=== PATIENT | male | born 1940 | race Caucasian/White ===

== ENCOUNTER 2020-12-14 16:08 | Observation (INO) | payer MEDICARE, SELFPAY ==
--- NOTE | ~2020-12-14 | US_ITS ---
EXAMINATION: US renal BI EXAM DATE: 12/15/2020 10:56 INDICATION: Hydronephrosis. TECHNIQUE: Multiple grayscale and Doppler images of the kidneys were obtained (by a technologist who performed the scan) and subsequently reviewed. Correlation is made to CT abdomen pelvis from beto garrido FINDINGS: Right kidney: There is normal contour and echogenicity. It measures 9.9 x 5.1 x 5.1 centimeters. The re is a cyst measuring up to 2 cm There is no hydronephrosis. Left kidney: There is normal contour and echogenicity. It measures 9.8 x 5.4 x 5.5 centimeters. The re are no focal renal lesions identified. There is no hydronephrosis. Dominguez catheter balloon appears to be adequately positioned within collapsed bladder. Severe prostatom egaly, dimensions on this study 6.5 x 6.3 x 6.3 cm with volume of 136 cc. IMPRESSION: 1. Sonographically unremarkable kidneys. 2. Severe prostatomegaly. Dominguez in position. 3. No hydronephrosis. Reviewed, dictated and finalized at location B.
--- NOTE | ~2020-12-14 | CT_ITS ---
EXAMINATION: CT abdomen pelvis w con DATE: 12/14/2020 18:31 INDICATION: Low abdominal pain. Difficulty urinating. TECHNIQUE: Computed tomography (CT) of the abdomen and pelvis was performed with 100 mL Omnipaque 350 intravenous contrast. Automated exposure control and iterative reconstruction technique were employe d. The dose-length product was 678.66 mGy-cm. COMPARISON: None. FINDINGS: The visualized portions of the lung bases demonstrate mild atelectasis. No pleural effusion . There is biatrial enlargement of the heart. No pericardial effusion. The liver demonstrates surface nodularity, consistent with cirrhosis. Calcifications in the liver and spleen are consistent with ol d granulomatous disease. There are changes of cholecystectomy. The pancreas and adrenal glands are no rmal. There is cortical thinning of the kidneys. There are cysts in right kidney measuring up to 2.2 cm. The prostate is severely enlarged. There is mild bilateral hydronephrosis and hydroureter. There is trabeculation of the bladder wall. There is a small left inguinal hernia containing fat. There is diverticulosis of the colon without evidence of diverticulitis. There are no dilated loops of bowel. The appendix is normal. There is moderate right renal artery stenosis. There is calcified atheroscler osis of the aorta and many of the other arteries. There is moderate thoracolumbar spondylosis. IMPRESSION: 1. Trabeculation of the bladder wall, likely secondary to chronic outlet obstruction from the severel y enlarged prostate. 2. Mild bilateral hydronephrosis and hydroureter. 3. Cirrhosis of the liver. 4. Cardiomegaly. 5. Left inguinal hernia containing fat. 6. Moderate stenosis of right renal artery. Reviewed, dictated and finalized at location A. IMPRESSION: 1. Trabeculation of the bladder wall, likely secondary to chronic outlet obstru ction from the severely enlarged prostate. 2. Mild bilateral hydronephrosis and hydroureter. 3. Cirrhosis of the liver. 4. Cardiomegaly. 5. Left inguinal hernia containing fat. 6. Moderate stenosis of right renal artery.
[2020-12-14 16:34] VITALS: BP 158/87; PULSE 76; RESP 22; TEMP 36.9; O2SAT 96
--- NOTE | 2020-12-14 17:21 | ED.GENADULT ---
HPI - General Adult General Chief complaint: Abdominal Pain Stated complaint: unable to urinate Time Seen by Provider: 12/14/20 16:24 Source: patient and family History of Present Illness HPI narrative: Patient is a 80 y/o male complaining lower abdominal pain starting 2 days ago. 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 There is no known alleviating or exacerbating factor. According to his , he has not been urinating much during last 24 hours. Related Data Home Medications Medication Instructions Recorded Confirmed No Home Medications 12/14/20 12/14/20 Allergies Allergy/AdvReac Type Severity Reaction Status Date / Time tetanus and diphtheria Allergy Unknown Unknown Verified 12/14/20 16:41 toxoids Review of Systems Review of Systems: ROS unobtainable: Yes unobtainable due to medical condition Exam Const: General: no acute distress and well developed HENMT: Head: normocephalic Ears: external ears normal General nose exam: Normal external nose present Eyes: General: appearance normal, both eyes and all related structures Conjunctivae: conjunctivae normal Neck: Neck: normal visual inspection and full ROM Chest: Chest palpation & inspection: normal inspection of the chest and no tenderness Resp: Effort & Inspection: normal respiratory effort Auscultation: clear to auscultation bilaterally Cardio: Rate: regular rate Rhythm: regular rhythm GI: GI Palp: Yes abdominal tenderness and Yes Soft to palpation Skin: General skin exam: normal color and turgor normal Neuro: Cognition (Neuro): normal cognition Speech: aphasia Motor exam (neuro): Other motor observations present (right arm weak) Extrem: General: normal to inspection, full ROM and no pedal edema Psych: Appearance: grossly normal Mental Status: mental status grossly normal Affect: normal affect Course Consultations Consultation #1: Discussed with Dr. Juárez, who recommends admitting to hospitalist for electrolyte monitoring and urology will consult. Date: 12/14/20 Time: 19:49 Consultation #2: Discussed with FAIZA Rodriguez, who agrees to admit. Date: 12/14/20 Time: 20:05 Vital Signs Vital signs: Vital Signs Temperature 36.9 C 12/14/20 16:34 Pulse Rate 76 12/14/20 16:34 Respiratory Rate 22 H 12/14/20 16:34 Blood Pressure 158/87 H 12/14/20 16:34 Pulse Oximetry 96 12/14/20 16:34 Temperature 36.9 C 12/14/20 16:34 Pulse Rate 65 12/14/20 20:26 Respiratory Rate 18 12/14/20 20:26 Blood Pressure 123/106 H 12/14/20 20:26 Pulse Oximetry 95 12/14/20 20:26 Medical Decision Making Vital Signs Vital Signs: Vital Signs Temperature 36.9 C 12/14/20 16:34 Pulse Rate 76 12/14/20 16:34 Respiratory Rate 22 H 12/14/20 16:34 Blood Pressure 158/87 H 12/14/20 16:34 Pulse Oximetry 96 12/14/20 16:34 Temperature 36.9 C 12/14/20 16:34 Pulse Rate 65 12/14/20 20:26 Respiratory Rate 18 12/14/20 20:26 Blood Pressure 123/106 H 12/14/20 20:26 Pulse Oximetry 95 12/14/20 20:26 Lab Data Result diagrams: 12/14/20 17:45 12/14/20 17:44 Labs: Lab Results 12/14/20 12/14/20 12/14/20 Range/Units 17:42 17:44 17:45 WBC 10.1 H (4.5-10.0) K/mm3 RBC 4.81 (4.6-6.20) M/mm3 Hgb 14.1 (14.0-18.0) g/dL Hct 42.0 (42.0-52.0) % MCV 87.3 (80-100) fl MCH 29.3 (26-34) pg MCHC 33.6 (32-36) g/dl RDW 13.5 (11.5-14.5) % Plt Count 217 (150-375) k/mm3 MPV 8.8 (7.4-10.4) fl Immature Gran % (Auto) 0.7 H (0-0.5) % Neut % (Auto) 89.4 H (45.5-73.1) % Lymph % (Auto) 4.4 L (18.3-44.2) % Banks % (Auto) 5.2 (2.6-8.5) % Eos % (Auto) 0.1 (0-4.4) % Baso % (Auto) 0.2 (0.2-1.2) % Lymph # (Auto) 0.44 L (0.9-3.2) K/mm3 Banks # (Auto) 0.5 (0.1-0.6) K/mm3 Eos # (Auto) 0.0 (0-0.3) K/mm3 Baso # (Auto) 0.0 (0.0-0.1) K/mm3 Abs Immat Gran (auto) 0.07 H (0.00-0.03
--- NOTE | 2020-12-14 17:32 | PC.NURSE ---
920cc nancy urine removed via straight cath, pt verbalizing relief of abd pain. No difficulty inserting catheter, denies hx urinary retention
[2020-12-14 17:56] LABS: Basophils Percent Auto 0.2 % (0.2-1.2); Eosinophils Percent Auto 0.1 % (0-4.4); Hemoglobin 14.1 g/dL (14.0-18.0); Immature Granulocyte Absolute 0.07 K/mm3 (0.00-0.031); Immature Granulocyte Percent A 0.7 % (0-0.5); Lymphocytes Absolute Auto 0.44 K/mm3 (0.9-3.2); Lymphocytes Percent Auto 4.4 % (18.3-44.2); Mean Corpuscular HGB Conc 33.6 g/dl (32-36); Mean Corpuscular Hemoglobin 29.3 pg (26-34); Mean Corpuscular Volume 87.3 fl (80-100); Mean Platelet Volume 8.8 fl (7.4-10.4); Monocytes Absolute Auto 0.5 K/mm3 (0.1-0.6); Monocytes Percent Auto 5.2 % (2.6-8.5); Neutrophils Percent Auto 89.4 % (45.5-73.1); Platelet Count Result 217 k/mm3 (150-375); Red Blood Count 4.81 M/mm3 (4.6-6.20); Red Cell Distribution Width 13.5 % (11.5-14.5); White Blood Count 10.1 K/mm3 (4.5-10.0)
[2020-12-14 18:08] LABS: Add Urine Microscopic? YES; Appearance Urine Clear (Clear); Bacteria Urine Trace /hpf; Bilirubin Urine Negative (Negative); Blood Urine 3+ (Negative); Color Urine Yellow (Yellow); Glucose Urine UA Negative (Negative); Ketones Urine Negative (Negative); Leukocyte Esterase Ur Negative LEU/UL (Negative); Mucus Urine Rare /lpf; Nitrate Urine Negative (Negative); Protein Urine 2+ mg/dL (Negative); RBC Urine 21-50 /hpf (0-2); Specific Grav Ur 1.012 (1.001-1.035); Urobilinogen Urine Negative mg/dL (<2.0); WBC Urine 0-3 /hpf
[2020-12-14 18:09] LABS: Alanine Aminotransferase 13 U/L (4-50); Albumin Level 4.7 g/dL (3.5-5.1); Alkaline Phosphatase 56 U/L (38-126); Anion Gap 11 mmol/L (8-16); Aspartate Amino Transferase 34 U/L (17-59); Bilirubin,Total 1.3 mg/dL (0.2-1.3); Blood Urea Nitrogen 18 mg/dL (9-20); Calcium 9.7 mg/dL (8.4-10.2); Carbon Dioxide 25 mmol/L (22-30); Chloride 102 mmol/L (98-107); Estimated Glomerular Filt Rate > 60; Glucose 118 mg/dL (75-110); Sodium 138 mmol/L (137-145)
[2020-12-14 18:44] VITALS: BP 124/81; PULSE 76; RESP 22; O2SAT 99
[2020-12-14 20:26] VITALS: BP 123/106; PULSE 65; RESP 18; O2SAT 95
--- NOTE | 2020-12-14 21:00 | ADMGEN ---
This patient, Mk Gallardo, was admitted to Medical Room 343-01. Patient/family oriented to hospital policies and general routines including ID bracelet, bed and alarms, visiting hours, pain management, procedures, bathroom and other care routines, personal items, smoking policy, room service/diet, and visiting hours. Information on how to activate the Rapid Response Team has been discussed. Patient/Family are encouraged to report perceived risks to care and to ask questions if they do not understand what they are told or what they should do.
[2020-12-14 21:51] VITALS: BP 139/76; PULSE 69; RESP 18; TEMP 36.6; O2SAT 100; BMI 21.8
--- NOTE | 2020-12-14 21:51 | PC.NURSE ---
Spoke to patient's , Shreya Gallardo, about past medical history and updated her on pt status. She denies any significant medical history besides his past CVA, with residual right-sided weakness, and a cholecystectomy.
--- NOTE | 2020-12-14 22:08 | PM.IMHP ---
H&P: HPI History of Present Illness Date/Time: 12/14/20 22:08 Patient is a 80 y/o male complaining lower abdominal pain starting 2 days ago. 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 There is no known alleviating or exacerbating factor. According to his , he has not been urinating much during last 24 hours. he was noted to have acute urinary retention and had a waldron put in the ED. he was consulted with urology and suggested observation. He reports he is doing okay currently with no issues. he has hx of stroke with residual right sided weaknes and aphasia. He uses cane to get around at home and lives with his . Chief Complaint: urinary retention Review of Systems Constitutional: Constitutional: Denies chills, Denies fatigue, Denies lethargy and Denies weakness Eyes: Eyes: Denies blurry vision and Denies photophobia ENT: Denies epistaxis and Denies nasal congestion Cardiovascular: Cardiovascular: Denies chest pain and Denies lightheadedness Respiratory: Respiratory: Denies cough and Denies dyspnea Gastrointestinal: Gastrointestinal: Reports abdominal pain, Denies bloating, Denies constipation, Denies diarrhea, Denies nausea and Denies vomiting Genitourinary: Genitourinary: Reports as per HPI and Denies hematuria Musculoskeletal: Musculoskeletal: Denies back pain and Denies neck pain Integumentary/Breasts: Skin/Breast: Denies dry skin and Denies pruritus Neurologic: Denies abnormal gait and Denies confusion Psychiatric: Psychiatric: Denies anxiety and Denies confusion [facility] Past Medical History Medical History (Updated 12/14/20 @ 22:18 by Tavon Ulloa MD) Aphasia CVA (cerebral vascular accident) Family History Family History (Updated 12/14/20 @ 21:50 by Olivia Hernandez, RN) Other Unknown family medical history Social History Social History (Updated 12/14/20 @ 21:50 by Olivia Hernandez, RN) Smoking status: Never smoker Alcohol intake: never Substance use: never Living arrangements: with family Occupation/Education: retired Gender identity (if verbalized by the patient): Male Spiritual care concerns: No Meds Home Medications and Allergies Home Medications Medication Instructions Recorded Confirmed Type No Home Medications 12/14/20 12/14/20 History Allergies Allergy/AdvReac Type Severity Reaction Status Date / Time tetanus and diphtheria Allergy Unknown Unknown Verified 12/14/20 21:34 toxoids Vital Signs Vital Signs - 24 hr 12/14/20 16:34 12/14/20 18:44 12/14/20 20:26 Temperature 98.5 F Pulse Rate 76 76 65 Respiratory Rate 22 H 22 H 18 Blood Pressure 158/87 H 124/81 123/106 H Pulse Oximetry 96 99 95 12/14/20 21:51 Temperature 97.8 F Pulse Rate 69 Respiratory Rate 18 Blood Pressure 139/76 Pulse Oximetry 100 Exam Narrative: Exam Narrative: GENERAL: The patient is well developed, not in acute distress HEENT: Nonicteric sclerae, PERRLA, EOMI. Oropharynx clear. Moist mucous membranes. Conjunctivae appear well perfused. CHEST: Chest wall is nontender. HEART: Regular rate and rhythm without murmur, rubs, or gallops LUNGS: Clear to auscultation bilaterally. no respiratory distress ABDOMEN: Soft, positive bowel sounds, non-tender, no organomegaly. Waldron cathere inplace with dark urine in the urine bag SKIN: No rash, no excessive bruising, petechiae, or purpura. NEUROLOGIC: Aphasic due to previous storke, alert and orientex x 3, right sided weakness present EXTREMITIES: no edema, cyanosis or clubbing H&P: Results Labs Labs: Short CBC 12/14/20 Range/Units 17:45 WBC 10.1 H (4.5-10.0) K/mm3 Hgb 14.1 (14.0-18.0) g/dL Hct 42.0 (42.0-52.0) % Plt Count 217 (150-375) k/mm3 BMP 12/14/20 17:44 Sodium 138 Potassium 4.0 Chloride 102 Carbon Dioxide 25 BUN 18 Creatinine 1.00 Glucose 118 H Calcium 9.7 Liver Function 12/14/20 Range/Units 17:44 Total Migue
[2020-12-15 05:51] LABS: Basophils Percent Auto 0.3 % (0.2-1.2); Eosinophils Absolute Auto 0.1 K/mm3 (0-0.3); Hematocrit 37.9 % (42.0-52.0); Hemoglobin 12.7 g/dL (14.0-18.0); Immature Granulocyte Absolute 0.03 K/mm3 (0.00-0.031); Immature Granulocyte Percent A 0.4 % (0-0.5); Lymphocytes Absolute Auto 1.02 K/mm3 (0.9-3.2); Lymphocytes Percent Auto 15.2 % (18.3-44.2); Mean Corpuscular HGB Conc 33.5 g/dl (32-36); Mean Corpuscular Hemoglobin 29.2 pg (26-34); Mean Corpuscular Volume 87.1 fl (80-100); Mean Platelet Volume 8.6 fl (7.4-10.4); Monocytes Absolute Auto 0.7 K/mm3 (0.1-0.6); Neutrophils Absolute Auto 4.9 K/mm3 (1.3-6.7); Neutrophils Percent Auto 73.1 % (45.5-73.1); Platelet Count Result 181 k/mm3 (150-375); Red Blood Count 4.35 M/mm3 (4.6-6.20); Red Cell Distribution Width 13.4 % (11.5-14.5); White Blood Count 6.7 K/mm3 (4.5-10.0)
[2020-12-15 06:04] LABS: Anion Gap 5 mmol/L (8-16); Blood Urea Nitrogen 16 mg/dL (9-20); Calcium 9.2 mg/dL (8.4-10.2); Carbon Dioxide 30 mmol/L (22-30); Chloride 104 mmol/L (98-107); Estimated CRCL calculation 52 ml/min; Estimated Glomerular Filt Rate > 60; Glucose 98 mg/dL (75-110); Potassium 3.7 mmol/L (3.4-5.0); Sodium 139 mmol/L (137-145)
[2020-12-15 08:00] VITALS: BP 112/62; PULSE 64; RESP 16; TEMP 36.4; O2SAT 95
[2020-12-15] MEDS: TAMSULOSIN HCL 0.4 MG CAPSULE PO (08:57)
--- NOTE | 2020-12-15 09:46 | WPDURCON ---
Assessment and Plan Assessment and plan (1) BPH (benign prostatic hyperplasia): Code(s): N40.0 - Benign prostatic hyperplasia without lower urinary tract symptoms Status: Acute Assessment and Plan: Restart Finasteride and add Flomax as well. Patient to keep waldron in for 7-10 days and follow up in our office for a voiding trial to remove his waldron. No further recommendations at this time. (2) Urinary retention: Code(s): R33.9 - Retention of urine, unspecified Status: Acute (3) Hydronephrosis: Code(s): N13.30 - Unspecified hydronephrosis Status: Acute Assessment and Plan: Get a DAVID to ensure resolution of hydro bilaterally s/p catheter placement. Creatinine is 1.00. Urology Consult Note HPI Date Seen: 12/15/20 Requesting Physician: Tavon Ulloa MD Primary Care Provider: Alek Pelletier, Consult Narrative Narrative: Mk Gallardo is a 80 year old male who presented to the ER yesterday with abdominal pain x 2 days. He is aphasic secondary to a stroke. He had a waldron placed noting >1 L of urine on return. His UA is clear other than some hematuria, CT scan done yesterday reveals trabeculation in the bladder and mild bilateral hydronephrosis. His WBC is 6.7, creatinine is 1.00. NO family is at the bedside and the patient is unable to give medical history. All information was obtained from his chart. He is a previous patient of Dr. Bourne in our practice who was seen and treated for BPH and elevated PSA's since the . He has had four negative prostate biopsy's. He has not been seen in ten years, but was previously on Finasteride. Review of Systems Review of Systems: ROS unobtainable: Yes unobtainable due to medical condition PMFSH Past Medical History Medical History Aphasia CVA (cerebral vascular accident) Family History Family History Other Unknown family medical history Social History Social History Smoking status: Never smoker Alcohol intake: never Substance use: never Living arrangements: with family Occupation/Education: retired Gender identity (if verbalized by the patient): Male Spiritual care concerns: No Meds Home Medications and Allergies Home Medications Medication Instructions Recorded Confirmed Type No Home Medications 12/14/20 12/14/20 History Allergies Allergy/AdvReac Type Severity Reaction Status Date / Time tetanus and diphtheria Allergy Unknown Unknown Verified 12/14/20 21:34 toxoids Vital Signs Vital Signs - 24 hr 12/14/20 16:34 12/14/20 18:44 12/14/20 20:26 Temperature 98.5 F Pulse Rate 76 76 65 Respiratory Rate 22 H 22 H 18 Blood Pressure 158/87 H 124/81 123/106 H Pulse Oximetry 96 99 95 12/14/20 21:51 12/15/20 08:00 Temperature 97.8 F 97.6 F Pulse Rate 69 64 Respiratory Rate 18 16 Blood Pressure 139/76 112/62 Pulse Oximetry 100 95 Exam Const: General: comfortable and confusion; No anxious Limitations: other limitations (aphasic) Resp: Effort & Inspection: normal respiratory effort Cardio: Rate: regular rate GI: GI Palp: Yes Soft to palpation and No Tenderness to palpation present (GI) : General: Yes no CVA tenderness Urinary Catheter: Urinary Catheter: patent and draining and urine clear Extrem: General: no edema Results Labs CBC & Chem 7: 12/15/20 05:23 12/15/20 05:24 Labs: Short CBC 12/14/20 12/15/20 Range/Units 17:45 05:23 WBC 10.1 H 6.7 (4.5-10.0) K/mm3 Hgb 14.1 12.7 L (14.0-18.0) g/dL Hct 42.0 37.9 L (42.0-52.0) % Plt Count 217 181 (150-375) k/mm3 BMP 12/14/20 12/15/20 17:44 05:24 Sodium 138 139 Potassium 4.0 3.7 Chloride 102 104 Carbon Dioxide 25 30 BUN 18 16 Creatinine 1.00 1.00 Glucose 118 H 98 C
--- NOTE | 2020-12-15 10:35 | PC.NURSE ---
Patient to ultrasound via hospital stretcher.
--- NOTE | 2020-12-15 10:57 | PC.NURSE ---
Patient returned from ultrasound via hospital stretcher.
[2020-12-15] MEDS: FINASTERIDE 5 MG TABLET PO (12:18)
--- NOTE | 2020-12-15 12:25 | PM.DS ---
DS: Admitting Diagnosis Admitting Diagnosis Admitting Diagnosis: Urinary retention and abdominal pain DS: Discharge Diagnosis Discharge Diagnosis (1) Urinary retention: Code(s): R33.9 - Retention of urine, unspecified Status: Acute Assessment and Plan: Urinary retention with bilateral mild hydronephrosis with hydroureter. Pt can Dominguez catheter inserted ua with no signs of infection. CT scan showed prostatomegaly. Pt seen by urology started on Flomax and finasteride, pt to be dischraged with the catheter in situ for 7- 10 days time. (2) BPH (benign prostatic hyperplasia): Code(s): N40.0 - Benign prostatic hyperplasia without lower urinary tract symptoms Status: Acute Assessment and Plan: Catheter, flomax and finasteride follow up with urology. (3) Cirrhosis of liver: Code(s): K74.60 - Unspecified cirrhosis of liver Status: Acute Assessment and Plan: In his history but patient or not aware. (4) CVA (cerebral vascular accident): Code(s): I63.9 - Cerebral infarction, unspecified Status: Inactive Assessment and Plan: Dense old CVA effecting his right side arm and leg and speech. DS: Summary Hospital Course Hospital Course: Pt admitted with abdominal pains and urinary retention. Urinary retention with bilateral mild hydronephrosis with hydroureter. Pt can Dominguez catheter inserted in ED. UA with no signs of infection. CT scan showed prostatomegaly. Pt seen by urology started on Flomax and finasteride, pt to be discharged with the catheter in situ for 7- 10 days time. Kidney US showed no hydronephrosis. P is stable for discharge wit urology follow up. Time Spent with Patient Time attestation: Total time spent providing and/or coordinating discharge services:40 minutes on day of dischrage Exam Narrative: Exam Narrative: GENERAL: The patient is well developed, pleasant man HEENT: PERRLA HEART: Regular rate and rhythm without murmur, rubs, or gallops LUNGS: Clear to auscultation bilaterally. ABDOMEN: Soft, positive bowel sounds, non-tender, no organomegaly. Dominguez catheter in place SKIN: No rash, no excessive bruising, petechiae, or purpura. NEUROLOGIC: Aphasic due to previous stoke, alert and oriented x 3, right sided weakness of arm and leg DS: Data Data Completed and Pending Labs on day of discharge: Labs from last 24 hours 12/15/20 12/15/20 12/15/20 05:24 05:23 05:23 WBC 6.7 RBC 4.35 L Hgb 12.7 L Hct 37.9 L MCV 87.1 MCH 29.2 MCHC 33.5 RDW 13.4 Plt Count 181 MPV 8.6 Immature Gran % (Auto) 0.4 Neut % (Auto) 73.1 Lymph % (Auto) 15.2 L Allen % (Auto) 10.0 H Eos % (Auto) 1.0 Baso % (Auto) 0.3 Lymph # (Auto) 1.02 Allen # (Auto) 0.7 H Eos # (Auto) 0.1 Baso # (Auto) 0.0 Abs Immat Gran (auto) 0.03 Absolute Neuts (auto) 4.9 Absolute Nucleated RBC 0.0 Nucleated RBC % 0.0 Sodium 139 Potassium 3.7 Chloride 104 Carbon Dioxide 30 Anion Gap 5 L BUN 16 Creatinine 1.00 Estim Creat Clear Calc 52 Estimated GFR > 60 Glucose 98 Calcium 9.2 Total Bilirubin AST ALT Alkaline Phosphatase Total Protein Albumin Free PSA Pending % Free PSA Pending Total PSA Pending Urine Color Urine Appearance Urine pH Ur Specific [place] Urine Protein Urine Glucose (UA) Urine Ketones Ur Blood (Man) Urine Nitrate Urine Bilirubin Urine Urobilinogen Leukocyte Esterase Rfl Urine RBC Urine WBC Urine Bacteria Urine Mucus 12/14/20 12/14/20 12/14/20 17:45 17:44 17:42 WBC 10.1 H RBC 4.81 Hgb 14.1 Hct 42.0 MCV 87.3 MCH 29.3 MCHC 33.6 RDW 13.5 Plt Count 217 MPV 8.8 Immature Gran % (Auto) 0.7 H Neut % (Auto) 89.4 H Lymph % (Auto) 4.4 L Allen % (Auto) 5.2 Eos % (Auto) 0.1 Baso % (Auto) 0.2 Lymph # (Auto) 0.44 L Mon
[2020-12-18 07:56] LABS: PSA, Free 9.92 ng/mL; PSA, Total 54.2 ng/mL (<=4.0)
== END 2020-12-15 14:25 | disposition home or self-care (01) ==
LOC: ANHED 16:48 → ANH3MED 20:52
PROVIDERS: Admitting Provider Internal Medicine; Emergency Provider Emergency Medicine; PCP Internal Medicine; Visit Provider Family Medicine
DX: N40.1 Benign prostatic hyperplasia with lower urinary tract symptoms (principal); R33.8 Other retention of urine; K74.60 Unspecified cirrhosis of liver; I69.351 Hemiplegia and hemiparesis following cerebral infarction affecting right dominant side; I69.320 Aphasia following cerebral infarction; R10.30 Lower abdominal pain, unspecified; R97.20 Elevated prostate specific antigen [PSA]
CPT/HCPCS: 36415; 74177; 76775; 80048; 80053; 81001; 84153; 84154; 85025; 99285; A9270; G0378; Q9967

== ENCOUNTER 2020-12-17 20:18 | Emergency (ER) | payer MEDICARE, SELFPAY ==
[2020-12-17 20:25] VITALS: BP 163/83; PULSE 79; RESP 16; O2SAT 100
--- NOTE | 2020-12-17 20:29 | ED.MALEGU ---
HPI - Male Genitourinary General Chief complaint: Urogenital-Male Stated complaint: hematuria, has urinary cath in place. Time Seen by Provider: 12/17/20 20:29 Source: patient and RN notes reviewed Mode of arrival: ambulatory Limitations: no limitations History of Present Illness HPI Narrative: Patient is 80 years old white male status post Dominguez catheter placement secondary to urinary retention 4 days ago. tint layer somehow the catheter got pulled, the tried to reinserted, currently draining fresh red bright blood. Bladder scan on arrival showed 300 cc in the bladder. Patient is not on any blood thinner. Related Data Home Medications Medication Instructions Recorded Confirmed No Home Medications 12/14/20 12/14/20 Allergies Allergy/AdvReac Type Severity Reaction Status Date / Time tetanus and diphtheria Allergy Unknown Unknown Verified 12/14/20 21:34 toxoids Review of Systems Review of Systems: Narrative: CONSTITUTIONAL: Denies fever, chills, or sweats. EYES: Denies visual changes, redness, or discharge. ENT: Denies rhinorrhea, congestion, sore throat, or otalgia. CARDIOVASCULAR: Denies chest pain, palpitations, or edema. RESPIRATORY: Denies cough or dyspnea. GASTROINTESTINAL: Denies abdominal pain, nausea, vomiting, or diarrhea. GENITOURINARY: Denies dysuria or hematuria. SKIN: Denies rash or itching. MUSCULOSKELETAL: Denies back pain, joint pain, or myalgia. NEUROLOGIC: Denies headache, numbness, or weakness. PSYCHIATRIC: Denies anxiety or depression. [facility] Past Medical History Medical History Aphasia CVA (cerebral vascular accident) Family History Family History Other Unknown family medical history Social History Social History Smoking status: Never smoker Alcohol intake: never Substance use: never Gender identity (if verbalized by the patient): Male Spiritual care concerns: No Exam Narrative: Exam Narrative: Dominguez catheter in place, fresh red bright blood in the Dominguez catheter bag Course Course Emergency Course: Improving Vital Signs Vital signs: Vital Signs Pulse Rate 79 12/17/20 20:25 Respiratory Rate 16 12/17/20 20:25 Blood Pressure 163/83 H 12/17/20 20:25 Pulse Oximetry 100 12/17/20 20:25 Pulse Rate 79 12/17/20 20:25 Respiratory Rate 16 12/17/20 20:25 Blood Pressure 163/83 H 12/17/20 20:25 Pulse Oximetry 100 12/17/20 20:25 MDM - Male Genitourinary MDM Narrative Medical decision making narrative: Traumatic hematuria versus bladder bleeding for unknown etiology. Differential Diagnosis Differential diagnosis: Likely urinary tract infection and acute retention of urine Critical Care Time Critical Care Time Critical Care Time: Yes Total Critical Care Time: 10 Discharge Plan Discharge Clinical Impression: Traumatic hematuria, Acute urinary retention Patient Disposition: Home, Self-Care Condition: Improved Instructions: Urinary Retention in Men (ED), Dominguez Catheter Placement and Care (ED), Hematuria (ED) Additional Instructions: Call your urologist for appointment Prescriptions: No Action No Home Medications RF: 0 tamsulosin 0.4 mg Capsule 0.4 mg PO QAM 30 Days Qty: 30 RF: 6 finasteride [Proscar] 5 mg Tablet 5 mg PO QAM 30 Days Qty: 30 RF: 6 Follow-up/Referrals: Prabhu,Alek Sage MD [Primary Care Provider] -
[2020-12-18] VITALS: BP 110/60; PULSE 80; RESP 16; O2SAT 100
== END 2020-12-18 00:01 | disposition home or self-care (01) ==
PROVIDERS: Emergency Provider Emergency Medicine; PCP Internal Medicine
DX: R31.9 Hematuria, unspecified (principal); R33.9 Retention of urine, unspecified; I69.920 Aphasia following unspecified cerebrovascular disease; Y84.6 Urinary catheterization as the cause of abnormal reaction of the patient, or of later complication, without mention of misadventure at the time of the procedure
CPT/HCPCS: 99281

== ENCOUNTER 2020-12-20 19:37 | Emergency (ER) | payer MEDICARE, SELFPAY ==
[2020-12-20 20:03] VITALS: BP 162/88; PULSE 119; RESP 18; TEMP 36.3; O2SAT 98
--- NOTE | 2020-12-20 20:14 | ECG_ITS ---
Measurements Intervals [place] Rate: 70 P: TN: 0 QRS: 56 QRSD: 92 T: 31 QT: 424 QTc: 459 Interpretive Statements ATRIAL FIBRILLATION ABNORMAL ECG Electronically Signed On 12-21-2020 6:59:55 CDT by Alex Rojas D.O.
[2020-12-20 20:57] LABS: Basophils Percent Auto 0.3 % (0.2-1.2); Eosinophils Percent Auto 0.1 % (0-4.4); Hematocrit 43.1 % (42.0-52.0); Hemoglobin 13.9 g/dL (14.0-18.0); Immature Granulocyte Absolute 0.04 K/mm3 (0.00-0.031); Immature Granulocyte Percent A 0.5 % (0-0.5); Lymphocytes Absolute Auto 0.47 K/mm3 (0.9-3.2); Mean Corpuscular HGB Conc 32.3 g/dl (32-36); Mean Corpuscular Hemoglobin 29.4 pg (26-34); Mean Corpuscular Volume 91.3 fl (80-100); Mean Platelet Volume 8.8 fl (7.4-10.4); Monocytes Absolute Auto 0.5 K/mm3 (0.1-0.6); Monocytes Percent Auto 5.9 % (2.6-8.5); Neutrophils Absolute Auto 6.8 K/mm3 (1.3-6.7); Neutrophils Percent Auto 87.2 % (45.5-73.1); Platelet Count Result 189 k/mm3 (150-375); Red Blood Count 4.72 M/mm3 (4.6-6.20); Red Cell Distribution Width 13.2 % (11.5-14.5); White Blood Count 7.8 K/mm3 (4.5-10.0)
[2020-12-20 21:06] LABS: Add Urine Microscopic? YES; Appearance Urine Cloudy (Clear); Bilirubin Urine Negative (Negative); Blood Urine 3+ (Negative); Color Urine Red (Yellow); Glucose Urine UA Negative (Negative); Ketones Urine Negative (Negative); Leukocyte Esterase Ur Negative LEU/UL (Negative); Mucus Urine Heavy /lpf; Nitrate Urine Negative (Negative); Protein Urine 2+ mg/dL (Negative); RBC Urine >75 /hpf (0-2); Urobilinogen Urine Negative mg/dL (<2.0)
[2020-12-20 21:07] LABS: Alanine Aminotransferase 13 U/L (4-50); Albumin Level 4.4 g/dL (3.5-5.1); Alkaline Phosphatase 56 U/L (38-126); Anion Gap 10 mmol/L (8-16); Aspartate Amino Transferase 31 U/L (17-59); Bilirubin,Total 1.2 mg/dL (0.2-1.3); Blood Urea Nitrogen 16 mg/dL (9-20); Calcium 9.6 mg/dL (8.4-10.2); Carbon Dioxide 26 mmol/L (22-30); Chloride 102 mmol/L (98-107); Estimated CRCL calculation 50 ml/min; Estimated Glomerular Filt Rate > 60; Glucose 123 mg/dL (75-110); INR 1.1; Potassium 3.9 mmol/L (3.4-5.0); Prothrombin Time 14.3 Seconds (11.1-14.7); Sodium 138 mmol/L (137-145)
--- NOTE | 2020-12-20 22:10 | PC.NURSE ---
Dominguez irrigated with NS until just pink tinged --patient tolerated well. at bedside
--- NOTE | 2020-12-20 22:42 | PC.NURSE ---
Patient and prefer to leave gravity bag on at this time- states that she has a leg bag at home but wasn't sure how to apply ir. Instructions given and she voiced understanding and mimed demonstration on unhooking current bag and replacing with leg bag.
--- NOTE | 2020-12-20 22:44 | ED.ABDPAIN ---
HPI - Abdominal Pain General Chief Complaint: Urogenital-Male Stated Complaint: Urinary retention Time Seen by Provider: 12/20/20 20:33 Source: patient and family Mode of arrival: ambulatory Limitations: no limitations History of Present Illness HPI narrative: 80-year-old with a history of A. fib and benign prostatic hypertrophy here with complaints of lower abdominal pain and unable to urinate since this afternoon. Patient reports that this morning the his Dominguez catheter removed at the doctor's office. He denies any fever or chills. No history of nausea vomiting. MD elicited complaint: abdominal pain Pertinent past history: other (Benign prostatic hypertrophy and urinary retention) Pain Consistency: constant Location: suprapubic Severity: moderate Quality: fullness Radiation: none Migration to: no migration Relieving factors: nothing Related Data Home Medications Medication Instructions Recorded Confirmed No Home Medications 12/14/20 12/14/20 Allergies Allergy/AdvReac Type Severity Reaction Status Date / Time tetanus and diphtheria Allergy Unknown Unknown Verified 12/14/20 21:34 toxoids Review of Systems Review of Systems: All systems reviewed & are unremarkable except as noted in HPI and below Constitutional: Constitutional: Reports no additional constitutional complaints Eyes: Eyes: Reports no additional eye complaints ENT: Reports system reviewed and no additional complaints, except as documented Cardiovascular: Cardiovascular: Reports no additional cardiovascular complaints Respiratory: Respiratory: Reports no additional respiratory complaints Gastrointestinal: Gastrointestinal: Reports as per HPI Genitourinary: Genitourinary: Reports as per HPI Musculoskeletal: Musculoskeletal: Reports no additional musculoskeletal complaints PMFSH Past Medical History Medical History Aphasia CVA (cerebral vascular accident) Family History Family History Other Unknown family medical history Social History Social History Smoking status: Never smoker Alcohol intake: never Substance use: never Gender identity (if verbalized by the patient): Male Spiritual care concerns: No Exam Narrative: Exam Narrative: GENERAL: Well-appearing, well-nourished, and in no acute distress. HEAD: Normocephalic, atraumatic. EYES: PERRLA and EOMI.. NECK: Supple. CHEST: Clear to auscultation. No respiratory distress. HEART: Regular rate and rhythm. No murmur heard. Normal peripheral pulses. ABDOMEN: Soft, suprapubic fullness and tenderness. EXTREMITIES: Normal range of motion. No edema. SKIN: Warm, dry, no rash. NEURO: No focal deficits. Alert and oriented x3. PSYCH: Normal mood and affect. Course Course Emergency Course: Dominguez catheter was placed got about 150 mL bloody urine irrigated several times which turned pink. Discussed lab work with patient as well as family family. Discussed this case with Dr. El medina patient can be discharged home and followed up with her office. Vital Signs Vital signs: Vital Signs Temperature 36.3 C L 12/20/20 20:03 Pulse Rate 119 H 12/20/20 20:03 Respiratory Rate 18 12/20/20 20:03 Blood Pressure 162/88 H 12/20/20 20:03 Pulse Oximetry 98 12/20/20 20:03 Temperature 36.3 C L 12/20/20 20:03 Pulse Rate 119 H 12/20/20 20:03 Respiratory Rate 18 12/20/20 20:03 Blood Pressure 162/88 H 12/20/20 20:03 Pulse Oximetry 98 12/20/20 20:03 MDM - Abdominal Pain Lab Data Result diagrams: 12/20/20 20:39 12/20/20 20:39 Labs: Lab Results 12/20/20 12/20/20 12/20/20 Range/Units 20:39 20:39 20:39 WBC 7.8 (4.5-10.0) K/mm3 RBC 4.72 (4.6-6.20) M/mm3 Hgb 13.9 L (14.0-18.0) g/dL Hct 43.1 (42.0-52.0) % MCV 91.3 (80-100) fl MCH 29.
[2020-12-20 22:50] VITALS: BP 137/68; PULSE 78; RESP 16; O2SAT 97
== END 2020-12-20 23:00 | disposition home or self-care (01) ==
PROVIDERS: Emergency Medicine Emergency Medical Services; Emergency Provider Family Medicine; PCP Internal Medicine
DX: R31.9 Hematuria, unspecified (principal); N40.1 Benign prostatic hyperplasia with lower urinary tract symptoms; R33.8 Other retention of urine; I48.91 Unspecified atrial fibrillation; I69.920 Aphasia following unspecified cerebrovascular disease
CPT/HCPCS: 36415; 51702; 80053; 81001; 85025; 85610; 93005; 99283

== ENCOUNTER 2020-12-23 19:50 | Emergency (ER) | payer MEDICARE, SELFPAY ==
[2020-12-23 19:54] VITALS: BP 171/77; PULSE 89; RESP 18; TEMP 36.7; O2SAT 97
--- NOTE | 2020-12-23 20:12 | ED.MALEGU ---
HPI - Male Genitourinary General Chief complaint: Urogenital-Male Stated complaint: urinary retention Time Seen by Provider: 12/23/20 20:04 Source: patient and family Mode of arrival: ambulatory Limitations: dementia History of Present Illness HPI Narrative: This is a 80 year old male that presents to the ER for urinary retention today. History given by . Reports he was at his Urologists office today and had his Dominguez catheter removed. Reports this was at 11 this morning. He has not been able to urinate since. He had Dominguez placed and now feels much better. Denies fever. Related Data Home Medications Medication Instructions Recorded Confirmed No Home Medications 12/14/20 12/14/20 Allergies Allergy/AdvReac Type Severity Reaction Status Date / Time tetanus and diphtheria Allergy Unknown Unknown Verified 12/23/20 19:58 toxoids Review of Systems Review of Systems: Narrative: CONSTITUTIONAL: Denies fever GASTROINTESTINAL: Denies nausea, vomiting GENITOURINARY: Denies hematuria. All systems reviewed & are unremarkable except as noted in HPI and below PMFSH Past Medical History Medical History Aphasia CVA (cerebral vascular accident) Family History Family History Other Unknown family medical history Social History Social History Smoking status: Never smoker Alcohol intake: never Substance use: never Gender identity (if verbalized by the patient): Male Spiritual care concerns: No Exam Narrative: Exam Narrative: GENERAL: Elderly, well-nourished, and in no acute distress. HEAD: Normocephalic, atraumatic. EYES: EOMI. CHEST: Clear to auscultation. No respiratory distress. No wheezes rales or rhonchi HEART: Regular rate and rhythm. No murmur heard. Normal peripheral pulses. ABDOMEN: Soft, nontender, nondistended, normal active bowel sounds. EXTREMITIES: Normal range of motion. No edema. SKIN: Warm, dry, no rash. NEURO: No focal deficits. Alert and oriented x3. PSYCH: Normal mood and affect Course Consultations Consultation #1: Spoke with Dr. Dhaliwal about patient and work-up. Patient is to call in the morning for an appointment for follow-up Date: 12/23/20 Time: 21:09 Vital Signs Vital signs: Vital Signs Temperature 98.1 F 12/23/20 19:54 Pulse Rate 89 12/23/20 19:54 Respiratory Rate 18 12/23/20 19:54 Blood Pressure 171/77 H 12/23/20 19:54 Pulse Oximetry 97 12/23/20 19:54 Temperature 98.1 F 12/23/20 19:54 Pulse Rate 89 12/23/20 19:54 Respiratory Rate 18 12/23/20 19:54 Blood Pressure 171/77 H 12/23/20 19:54 Pulse Oximetry 97 12/23/20 19:54 MDM - Male Genitourinary MDM Narrative Medical decision making narrative: Patient presents to the emergency department for urinary retention. Dominguez catheter was removed today by Urologist and had not been able to urinate since. Patient has had several attempts to remove Dominguez without success recently. Urine today is orange, likely at least partially due to him currently taking Azo. UA is nitrate positive, but no white blood cells and only trace bacteria. I will send this for culture. Patient feels much better after Dominguez catheter placement. He is afebrile and nontoxic-appearing. Spoke with Dr. Dhaliwal about patient work-up. Patient is to call in the morning for an appointment for follow-up. He is stable and felt appropriate for further outpatient evaluation. He was given warnings to return to the ER Lab Data Attestation: I reviewed the patient's lab results. Labs: Lab Results 12/23/20 Range/Units 20:19 Urine Color Abigail (Yellow) Urine Appearance Clear (Clear) Urine pH 6.0 (5.0-9.0) Ur Specific [place] 1.006 (1.001-1.035) Urine Protein 1+ H (Negative) mg/dL Urine Glucose (UA) Negative (Negative) mg/dL Urine Ketones Negativ
[2020-12-23 20:36] LABS: Add Urine Microscopic? YES; Appearance Urine Clear (Clear); Bacteria Urine Trace /hpf; Bilirubin Urine Negative (Negative); Blood Urine 3+ (Negative); Color Urine Amber (Yellow); Glucose Urine UA Negative (Negative); Ketones Urine Negative (Negative); Leukocyte Esterase Ur Negative LEU/UL (Negative); Mucus Urine Rare /lpf; Nitrate Urine Positive (Negative); Protein Urine 1+ mg/dL (Negative); RBC Urine >75 /hpf (0-2); Specific Grav Ur 1.006 (1.001-1.035); Squamous Epithelial Cell Urine Rare /hpf (Few); WBC Urine 0-3 /hpf
== END 2020-12-23 21:38 | disposition home or self-care (01) ==
PROVIDERS: Physician Assistant; Emergency Provider Emergency Medicine; PCP Internal Medicine
DX: R33.9 Retention of urine, unspecified (principal); I69.920 Aphasia following unspecified cerebrovascular disease
CPT/HCPCS: 51702; 81001; 87086; 99283

== ENCOUNTER 2021-01-04 01:34 | Emergency (ER) | payer MEDICARE, SELFPAY ==
[2021-01-04 01:39] VITALS: PULSE 89; RESP 18; TEMP 36.4; O2SAT 96
--- NOTE | 2021-01-04 01:43 | PC.NURSE ---
Irrigated catheter due to no flow. Irrigated with 120 ML NS. Small clot came out, pt started to produce urine. 30 ml of urine came out of catheter. will continue to monitor .
--- NOTE | 2021-01-04 02:14 | ED.MALEGU ---
HPI - Male Genitourinary General Chief complaint: Urogenital-Male Stated complaint: cath problem Time Seen by Provider: 01/04/21 01:37 History of Present Illness HPI Narrative: 80 yo male w/ h/o BPH presents to the ED for a catheter problem. He reportedly had not had any urine out put from his catheter for hours. Then it began draining from around the catheter and there was blood in it. No other complaints. He has an appointment for urodynamics today. Related Data Home Medications Medication Instructions Recorded Confirmed No Home Medications 12/14/20 12/14/20 Allergies Allergy/AdvReac Type Severity Reaction Status Date / Time tetanus and diphtheria Allergy Unknown Unknown Verified 12/23/20 19:58 toxoids Review of Systems Constitutional: Constitutional: Denies chills and Denies fever(s) Cardiovascular: Cardiovascular: Denies chest pain Respiratory: Respiratory: Denies dyspnea Gastrointestinal: Gastrointestinal: Denies abdominal pain Genitourinary: Genitourinary: Reports hematuria PMFSH Past Medical History Medical History Aphasia CVA (cerebral vascular accident) Family History Family History Other Unknown family medical history Social History Social History Smoking status: Never smoker Alcohol intake: never Substance use: never Gender identity (if verbalized by the patient): Male Spiritual care concerns: No Exam Const: General: no acute distress and alert Nutritional Appearance: well nourished HENMT: Head: normal to inspection Neck: Neck: normal visual inspection Resp: Effort & Inspection: normal respiratory effort Auscultation: clear to auscultation bilaterally Cardio: Rate: regular rate Rhythm: regular rhythm GI: GI Palp: Yes Soft to palpation and No Tenderness to palpation present (GI) : General: Yes bladder normal to palpation Urinary Catheter: Urinary Catheter: other (pink tinged urine) Skin: General skin exam: normal color Neuro: General: moves all extremities Extrem: General: normal to inspection Course Vital Signs Vital signs: Vital Signs Temperature 36.4 C 01/04/21 01:39 Pulse Rate 89 01/04/21 01:39 Respiratory Rate 18 01/04/21 01:39 Pulse Oximetry 96 01/04/21 01:39 Temperature 36.4 C 01/04/21 03:05 Pulse Rate 88 01/04/21 03:05 Respiratory Rate 20 01/04/21 03:05 Blood Pressure 128/70 01/04/21 03:05 Pulse Oximetry 100 01/04/21 03:05 MDM - Male Genitourinary MDM Narrative Medical decision making narrative: urine flushed and clot cleared. Urine clearing up. Will send UA. They are eager for discharge. Urology can follow-up on results at todays appointment. Differential Diagnosis Differential diagnosis: Likely urinary tract infection Medical Records Attestation: I reviewed the patient's medical records. Discharge Plan Discharge Clinical Impression: Complication, blocked Dominguez catheter Qualifiers: Encounter type: initial encounter Qualified Code(s): T83.091A - Other mechanical complication of indwelling urethral catheter, initial encounter Patient Disposition: Home, Self-Care Condition: Stable Instructions: Dominguez Catheter Placement and Care (ED) Prescriptions: No Action No Home Medications RF: 0 tamsulosin 0.4 mg Capsule 0.4 mg PO QAM 30 Days Qty: 30 RF: 6 finasteride [Proscar] 5 mg Tablet 5 mg PO QAM 30 Days Qty: 30 RF: 6 Follow-up/Referrals: Lukasz Dhaliwal MD [Physician] - [place],Alek Sage MD [Primary Care Provider] -
[2021-01-04 03:05] VITALS: BP 128/70; PULSE 88; RESP 20; TEMP 36.4; O2SAT 100
[2021-01-04 04:16] LABS: Add Urine Microscopic? YES; Appearance Urine Cloudy (Clear); Bilirubin Urine Negative (Negative); Blood Urine 3+ (Negative); Color Urine Yellow (Yellow); Glucose Urine UA Negative (Negative); Ketones Urine Negative (Negative); Leukocyte Esterase Ur 3+ LEU/UL (Negative); Mucus Urine Rare /lpf; Nitrate Urine Negative (Negative); Protein Urine 2+ mg/dL (Negative); RBC Urine >75 /hpf (0-2); Specific Grav Ur 1.012 (1.001-1.035); Urobilinogen Urine Negative mg/dL (<2.0); WBC Urine >75 /hpf
== END 2021-01-04 03:06 | disposition home or self-care (01) ==
PROVIDERS: Emergency Provider Emergency Medicine; PCP Internal Medicine
DX: T83.091A Other mechanical complication of indwelling urethral catheter, initial encounter (principal)
CPT/HCPCS: 81001; 87077; 87086; 87088; 87186; 99283

== ENCOUNTER 2025-03-29 09:50 | Emergency (ER) | payer MEDICARE, SELFPAY ==
--- OUTSIDE RECORDS SUMMARY | 2025-03-29 09:52 | XMS_ITS | Clinical Summary ---
Author Organization [facility] Address [address] [place] [address] Care Team Providers Care Lab Tech Name Role Phone Unavailable Primary Care Provider Unavailabl e Social History Tobacco Use Types Packs/Day Years Used Date Smoking Tobacco: Never Assessed Sex and Gender Information Value Date Recorded Sex Assigned at Not on file Legal Sex Male 5:14 PM CDT Gender Identity Not on file Sexual Orientation Not on file Plan of Treatment Health Maintenance Due Date Last Done Comments DTaP, Tdap and Td Vaccines ( 1 - Tdap) 1957 Pneumococcal Vaccine: 50+ Ye ars (1 of 1 - PCV) 1988 Zoster Vaccines (1 of 2) 1988 RSV Immunization or 60+ Years (1 - 1-dose 75+ series) 2013 COVID-19 Vaccine (2023-2 5 season) 2024 Meningococcal B Vaccine Aged Out No l onger eligible based on patient's age to complete this topic Meningococcal Vaccine Aged Out No ricardo king eligible based on patient's age to complete this topic RSV Immunizations Under 20 Months Aged Out No longer eligible based on patient's age to complete this topic
--- OUTSIDE RECORDS SUMMARY | 2025-03-29 09:52 | XMS_ITS | Continuity of Care Document ---
Author Organization [facility] Address [address] [place] [address] Phone Care Team Providers Care Lawn Specialist Name Role Phone Alek Pelletier MD Unavailable Unavailable Allergies, Adverse Reactions, Alerts Substance Reaction Status Criticality Tetanus Vaccines and Toxoid Active No Information Medications Medication Instructions Dosage Effective Dates (start - stop) Status Comments atorvastatin 40 mg tablet take 1 tablet by oral route every day 40 MG - No Longer Active aspirin 325 mg tablet,delayed release take 1 tablet by oral route every day 325 MG - No Longer Active Advance Directives Directive Yes / No Effective Date File Name No Information Encounters Encounter Description Practice Location Reason(s) For Visit Diagnoses Date Provider Providers Copied on Encounter [facility], [address], [place], [place], [id number] , tel: [phone] [facility] No Information 1 Prabhu Gaston. [address] [place] [address], [id number] , . tel: [phone] [facility], [id number] [place] [address], [id number] , tel: [phone] [facility] No Information 0 Prabhu Gaston. [address] [place] [address], [id number] , . tel: [phone] [facility], [address], [place], [place], [id number] , tel: [phone] [facility] Senile cataract of right eye, unspecified age-related cataract typeHemiplegia of dominant side as late effect following cerebrovascular diseaseAphasia as late effect of cerebrovascular accidentHyperlipidemi a, unspecified hyperlipidemia type 7 Randamessi Choi. [address] [place] [address], [address], [place], [place], [address] [place] [address] , . tel: [phone] Referring Provider: Alek Pelletier, [address] [place] [address] [address], [place], [place], [address] [place] [address] . tel:[phone] [facility], [address], [place], [place], [id number] , tel: [phone] [facility] Hemiplegia of dominant side as late effect following cerebrovascular diseaseAphasia as late effect of cerebrovascular accidentHyperlipidemi a, unspecifiedScreening for prostate cancer 6 Prabhu Gaston. [address] [place] [address], [address], [place], [place], [id number] , . tel: [phone] Referring Provider: Alek Pelletier, [address] [place] [address] [address], [place], [address] [place] [address] . tel:[phone] [facility], [address], [place], [place], [id number] , tel: [phone] [facility] Anxiety state, unspecifiedOther and unspecified hyperlipidemiaAphasia as late effect of cerebrovascular accidentCerebrovascul ar accident 5 Inocente Bey. [address] [place] [address], [address], [place], [place], [id number] . tel: [phone] Referring Provider: Alek Pelletier, [address] [place] [address] [address], [place], [address] [place] [address] . tel:[phone] [facility], [address], [place], [place], [id number] , tel: [phone] [facility] HYPERTROPHY (BENIGN) OF PROSTATE WITHOUT URINARY OBSTRUCTIONImpotence of organic originElevated prostate specific antigen (psa)HYPERTROPHY (BENIGN) OF PROSTATE WITHOUT URINARY OBSTRUCTIONElevated prostate specific antigen (psa)HEMATURIA NOS Jun- 1 Prabhu Gaston. [address] [place] [address], [address], [place], [place], [id number] , . tel: [phone] Referring Provider: Alek Pelletier, [address] [facility] [address], [place], [address] . tel:[phone] Family History Family Member Type Diagnosis Age At Onset Father Problem (finding) malignant neoplasm of l [place] Sister Problem (finding) diabetes melli tus in first degree relative Payers Payer name Insurance type Covered alliance party ID Authorhama naida(s) MEDICARE [place] [id number] [employer] INSURNACE [id number] Social History Type Description Quantity Date Captured Comments Alcohol Use Details Unknown Caffeine Use Details Unknown Tobacco Use Status No Information Smoking Status No Information Sex Male Chief Complaint And Reason For Visit No Information Reason For Referral Reason For Referral No Information History Of Present Illness Encounter Date Complaint History Of Prese nt Illness No Information Functional Status Date Functional Assessmen t No Information Instructions Date Instruction Additional Infor mation No Information Assessments Type Assessment Date No Information Patient Care Teams Name Effective Dates (start - stop) Status Members No Information
[2025-03-29 10:03] VITALS: BP 158/88; PULSE 86; RESP 18; TEMP 36.6; O2SAT 97
[2025-03-29 10:33] LABS: Add Urine Microscopic? YES; Appearance Urine Clear (Clear); Glucose Urine UA Negative (Negative); Leukocyte Esterase Ur 2+ LEU/UL (Negative); Nitrate Urine Positive (Negative); Non Pathogenic Casts 0-2; Specific Grav Ur 1.008 (1.001-1.035)
--- OUTSIDE RECORDS SUMMARY | 2025-03-29 10:45 | XMS_ITS | Continuity of Care Document ---
Author Organization [facility] Address [address] [place] [address] Phone Care Team Providers Care Assistant Director Of Financial Aid Name Role Phone Alek Pelletier MD Unavailable [...] Diagnoses Date Provider Providers Copied on Encounter [facility], [address], [place], [place], [id number] , tel: [phone] [facility] No Information 1 Prabhu Gaston. [address] [place] [address], [id number] , . tel: [phone] [facility], [address] [place] [address], [id number] , tel: [phone] [facility] No Information 0 Prabhu Gaston. [address] [place] [address], [id number] , . tel: [phone] [facility], [address], [place], [place], [id number] , tel: [phone] [facility] Senile cataract of right eye, unspecified age-related cataract typeHemiplegia of dominant side as late effect following cerebrovascular diseaseAphasia as late effect of cerebrovascular accidentHyperlipidemi a, unspecified hyperlipidemia type 7 Randamessi Choi. [address] [place] [address], [address], [place], [address] [place] [address] , . tel: [phone] Referring Provider: Alek Pelletier, [address] [place] [address] [address], [place], [place], [address] [place] [address] . tel:[phone] [facility], [address], [place], [place], [id number] , tel: [phone] [facility] Hemiplegia of dominant side as late effect following cerebrovascular diseaseAphasia as late effect of cerebrovascular accidentHyperlipidemi a, unspecifiedScreening for prostate cancer 6 Prabhu Gaston. [address] [place] [address], [address], [place], [place], [id number] , . tel: [phone] Referring Provider: Alek Pelletier, [address] [place] [address] [address], [place], [address] [place] [address] . tel:[phone] [facility], [address], [place], [place], [address] , tel: [phone] [facility] Anxiety state, unspecifiedOther and unspecified hyperlipidemiaAphasia as late effect of cerebrovascular accidentCerebrovascul ar accident 5 Inocente Bey. [address] [place] [address], [address], [place], [place], [id number] . tel: [phone] Referring Provider: Alek Pelletier, [address] [place] [address] [address], [place], [address] [place] [address] . tel:[phone] [facility], [address], [place], [place], [address] , tel: [phone] [facility] HYPERTROPHY (BENIGN) OF PROSTATE WITHOUT URINARY OBSTRUCTIONImpotence of organic originElevated prostate specific antigen (psa)HYPERTROPHY (BENIGN) OF PROSTATE WITHOUT URINARY OBSTRUCTIONElevated prostate specific antigen (psa)HEMATURIA NOS Jun- 1 Prabhu Gaston. [address] [place] [address], [address], [place], [place], [id number] , . tel: [phone] Referring Provider: Alek Pelletier, [address] [facility] [address], [place], [address] . tel:[phone] Family History Family Member Type Diagnosis Age At Onset Father Problem (finding) malignant neoplasm of l [place] Sister Problem (finding) diabetes melli tus in first degree relative Payers Payer name Insurance type Covered republican ID Authorhama naida(s) MEDICARE [place] [id number] [facility] INSURNACE [id number] Social History Type Description Quantity Date Captured [...]
--- OUTSIDE RECORDS SUMMARY | 2025-03-29 10:45 | XMS_ITS | Clinical Summary ---
Author Organization [facility] Address [address] [place] [address] Care Team Providers Care Glove Parts Inspector Name Role Phone Unavailable Primary Care Provider [...]
--- NOTE | 2025-03-29 11:11 | ED_ITS ---
HPI - Male Genitourinary General Chief complaint: Urogenital-Male Stated complaint: unable to urinate since yesterday Time Seen by Provider: 03/29/25 10:05 History of Present Illness HPI Narrative: Patient is an 84-year-old male with history of CVA with history of right-sided weakness who presents the ER with urinary retention. This has happened previously. Bladder scan shows approximately 400 mL of urine in the bladder. He has discomfort. He is attempting to urinate but cannot. No fevers or chills. Accompanied by son who helps provide history. Patient has had urinary retention in the past. Related Data Allergies Allergy/AdvReac Type Severity Reaction Status Date / Time tetanus and diphtheria Allergy Unknown Unknown Verified 12/23/20 19:58 toxoids Review of Systems Review of Systems: ROS unobtainable: Yes unobtainable due to medical condition PMFSH Past Medical History Medical History Aphasia CVA (cerebral vascular accident) Family History Family History Other Unknown family medical history Social History Social History Smoking status: Never smoker Alcohol intake: never Substance use: never Living arrangements: with family Occupation/Education: retired Gender identity (if verbalized by the patient): Male Spiritual care concerns: No Exam Narrative: GENERAL: Chronically ill-appearing, well-nourished, and in no acute distress. HEAD: Normocephalic, atraumatic. ENT: Mucous membranes moist. CHEST: Clear to auscultation. No respiratory distress. HEART: Regular rate and rhythm. Normal peripheral pulses. ABD: Suprapubic pain with palpation, nondistended. SKIN: Warm, dry, no rash. NEURO: awake alert, expressive aphasia. PSYCH: Normal mood and affect. Course Course Emergency Course: Dominguez placed. Urine with evidence of infection. Discharge with Flomax and antibiotics. Vital Signs Vital signs: Vital Signs Temperature 97.9 F 03/29/25 10:03 Pulse Rate 86 03/29/25 10:03 Respiratory Rate 18 03/29/25 10:03 Blood Pressure 158/88 H 03/29/25 10:03 Pulse Oximetry 97 03/29/25 10:03 Oxygen Delivery Room Air 03/29/25 10:03 Temperature 97.9 F 03/29/25 10:03 Pulse Rate 86 03/29/25 10:03 Respiratory Rate 18 03/29/25 10:03 Blood Pressure 158/88 H 03/29/25 10:03 Pulse Oximetry 97 03/29/25 10:03 Oxygen Delivery Room Air 03/29/25 10:03 MDM - Male Genitourinary Lab Data Labs: Lab Results 03/29/25 Range/Units 10:22 Urine Color Yellow (Yellow) Urine Appearance Clear (Clear) Urine pH 5.5 (5.0-9.0) Ur Specific [place] 1.008 (1.001-1.035) Urine Protein Negative (Negative) mg/dL Urine Glucose (UA) Negative (Negative) mg/dL Urine Ketones Negative (Negative) mg/dL Ur Blood (Man) 3+ H (Negative) Urine Nitrate Positive H (Negative) Urine Bilirubin Negative (Negative) Urine Urobilinogen 0.2 (<2.0) mg/dL Leukocyte Esterase Rfl 2+ H (Negative) [place]/UL Urine RBC 3-5 H (0-2) /hpf Urine WBC 21-50 H (0-3) /hpf Ur Squamous Epith Cells None seen (Few) /hpf Urine Bacteria 4+ H /hpf Urine Casts 0-2 Discharge Plan Discharge Clinical Impression: Urinary retention, Acute UTI Patient Disposition: Home Condition: Stable Instructions: Antibiotic Form, Urinary Tract Infection in Men (ED), Dominguez Catheter Placement and Care (ED) Additional Instructions: You should return to the emergency department if you develop severe nausea and vomiting and are unable to keep liquids down, if you develop severe back/flank or stomach pain, or if your symptoms are not clearly improving at home. Patient Language: [place]ic Prescriptions: New tamsulosin 0.4 mg capsule 0.4 mg PO DAILY Qty: 7 0RF cefuroxime axetil 500 mg tablet 500 mg PO BID Qty: 20 0RF No Action tamsulosin 0.4 mg Capsule 0.4 mg PO QAM 30 Days Qty: 30 6RF finasteride [Proscar] 5 mg Tablet 5 mg PO QAM 30 Days Qty: 30 6RF Follow-up/Referrals: Jong Nobles MD [Physician] - 1 Week Pelletier,Alek Sage MD [Primary Care Provider] -
[2025-03-29 11:42] VITALS: BP 123/75; PULSE 75; RESP 17; O2SAT 98
== END 2025-03-29 11:44 | disposition home or self-care (01) ==
PROVIDERS: Emergency Provider Emergency Medicine; PCP Internal Medicine
DX: N39.0 Urinary tract infection, site not specified (principal); R33.9 Retention of urine, unspecified; I69.951 Hemiplegia and hemiparesis following unspecified cerebrovascular disease affecting right dominant side
CPT/HCPCS: 51702; 81001; 87086; 99283